=== PATIENT | male | born 1980 | race African-American/Black ===

== ENCOUNTER 2017-04-25 12:10 | Emergency (ER) | payer BC ==
--- NOTE | 2017-04-30 07:29 | ER ---
ADMIT: 04/25/2017 RM/LOC: ER [facility] MR#: [id number] [place], [place] [id number] HENOK CONTE I [address] [place], [place] [id number] Emergency Room Report SEX: M AGE: 36 : 1980 DATE: 04/25/2017 The patient is a 36-year-old black male with unintentional weight loss. He said he has lost about 20 pounds in a very short time. He said he feels like he eats and does not gain any weight. He has an appointment on Friday with Family Practice, and seems to be very frustrated. He says to him this is an emergency because he has lost weight and is unable to visit a doctor until his appointment on Friday. He has no history of any medical issues except that he is a smoker. He smokes 4-5 cigarettes a day and he is in fact a very thin built man. PHYSICAL EXAMINATION: VITAL SIGNS: Blood pressure 138/102, heart rate is 92, respirations 16, temp is 97.2, and O2 sats 100%. HEENT: Normal inspection. Oral mucosa moist. NECK: Supple. RESPIRATIONS: No distress. CVS: Regular in rate and rhythm. EXTREMITIES: Well perfused. ABDOMEN: Very thin, kyphotic, nontender. He points to the umbilical area of mild tenderness and possible bloating. The chest x-ray came back negative. CBC within normal limits. Chemistry; glucose 104. Urine; urobilinogen 4.0, mucus moderate. Rest of the labs within normal limits. CLINICAL IMPRESSION: Unintentional weight loss. Advise follow up with his primary provider. No medications were given at this time although I did mention to him that he needed to take protein milk shakes, supplements, multivitamins, eat multiple meals a day. Apparently he is taking less than he is burning, so metabolism can be accelerated. He needs to follow up with his doctor and see if any other testing to include TSH should be included in his labs. CATY Louis / Juan Cedeno MD / [place] JOB #: [id number] CC: Juan Cedeno MD, Attending Physician Radha Modi, Family Physician
== END 2017-04-25 15:10 | disposition home or self-care (01) ==
LOC: ER 12:10
DX: R63.4 Abnormal weight loss (principal); F17.210 Nicotine dependence, cigarettes, uncomplicated